=== PATIENT | female | born 1990 | race Two or more races ===

== ENCOUNTER 2024-03-29 22:14 | Emergency (ER) | payer OTHER ==
[2024-03-29 22:44] LABS: BASOPHILS PERCENT AUTO 0.4 % (0.2-1.2); EOSINOPHILS ABSOLUTE AUTO 0.2 x10^3/uL (0.0-0.5); HEMATOCRIT 27.2 % (33.0-47.0); HEMOGLOBIN 8.7 g/dL (12.0-16.0); LYMPHOCYTES ABSOLUTE AUTO 3.1 x10^3/uL (1.0-4.8); LYMPHOCYTES PERCENT AUTO 40.6 % (25.0-50.0); MEAN CORPUSCULAR HEMOGLOBIN 25.1 pg (26.0-32.0); MEAN CORPUSCULAR VOLUME 78.6 fL (78.0-93.0); MONOCYTES ABSOLUTE AUTO 0.5 x10^3/uL (0.0-0.8); MONOCYTES PERCENT AUTO 6.6 % (2.0-11.0); NEUTROPHILS ABSOLUTE AUTO 3.8 x10^3/uL (1.8-7.7); NEUTROPHILS PERCENT AUTO 50.4 % (50.0-80.0); PLATELET COUNT,PLT 358 x10^3/uL (130-400); RED BLOOD CELL COUNT 3.46 x10^6/uL (4.00-5.50); WHITE BLOOD CELL COUNT,WBC 7.6 x10^3/uL (4.0-10.0)
[2024-03-29 23:01] LABS: A/G RATIO 1.16; ALANINE AMINOTRANSFERASE,ALT 11 U/L (14-59); ALBUMIN 3.6 g/dL (3.4-5.0); ALKALINE PHOSPHATASE 120 U/L (46-116); ANION GAP 12.7 mmol/L (5-15); ASPARTATE AMNIOTRANSFERASE,AST 11 U/L (15-37); BILIRUBIN TOTAL 0.2 mg/dL (0.2-1.0); BLOOD UREA NITROGEN,BUN 12 mg/dL (7-18); CALCIUM 8.5 mg/dL (8.5-10.1); CARBON DIOXIDE,CO2 28 mmol/L (21-32); CHLORIDE,CL 104 mmol/L (98-107); CREATININE 0.9 mg/dL (0.55-1.02); ESTIMATED GFR 86 mL/min (>=60); GLUCOSE RANDOM 95 mg/dL (70-99); POTASSIUM,K 3.7 mmol/L (3.5-5.1); PROTEIN TOTAL,TP 6.7 g/dL (6.4-8.2); SODIUM,NA 141 mmol/L (136-145)
== END 2024-03-29 23:17 | disposition home or self-care (01) ==
LOC: VM.ED 22:14
DX: R07.89 Other chest pain (principal); F17.200 Nicotine dependence, unspecified, uncomplicated
CPT/HCPCS: 36415; 80053; 84484; 85025; 93005; 93010; 99284; 99285